=== PATIENT | male | born 1985 | race Caucasian/White ===

== ENCOUNTER 2018-07-03 10:43 | Emergency (ER) | payer BC ==
[2018-07-03] MEDS: predniSONE 20 MG TAB PO (11:43)
[2018-07-03] MEDS: KETOROLAC 60 MG INJ IM (11:44)
[2018-07-03] MEDS: morphine LIQ (10 MG/5 ML) CUP PO (11:44)
[2018-07-03] MEDS: LIDOCAINE 5% PATCH TD (11:59)
[2018-07-03] MEDS: METHOCARBAMOL 750 MG TAB PO (12:41)
== END 2018-07-03 13:36 | disposition home or self-care (01) ==
LOC: FTE 10:43
DX: S29.012A Strain of muscle and tendon of back wall of thorax, initial encounter (principal); X50.0XXA Overexertion from strenuous movement or load, initial encounter; Y92.9 Unspecified place or not applicable
CPT/HCPCS: 72128; 96372; 99285-25